=== PATIENT | male | born 1980 | race Caucasian/White ===

== ENCOUNTER 2016-12-14 19:45 | Emergency (ER) | payer OTHER ==
[~2016-12-14] VITALS: Ht 188 cm; Wt 111.6 kg
[~2016-12-14 19:45] MED LIST: AMLODIPINE10 MG PO; ATENOLOL25 MG PO; CELEXA20 MG PO; CITALOPRAM HYDR10 MG PO; COMPAZINE10 MG PO; FLEXERIL10 MG PO; HYDRODIURIL 2525 MG PO; LOSARTAN POTAS100 MG PO; MOTRIN800 MG PO; NAPROXEN500 MG PO; NORVASC5 M1 PO; PERCOCET 325 MG1 TAB PO; PREVACID 30MG30 MG PO; ROBITUSSIN W/CO10 ML PO; TORADOL10 MG PO; TRAMADOL50 MG PO; TRAZODONE100 MG PO; TRICOR 145 MG145 MG PO; VALACYCLOVIR1 GM PO; VALTREX1 GM PO
[2016-12-14 19:48] VITALS: BP 157/96
--- NOTE | 2016-12-14 19:56 | ED SKIN/ALLERGY COMPLAINT ---
History of Present Illness General Chief Complaint: Skin Rash/ Abcess Stated Complaint: " BOIL ON RT SIDE OF CHEST" Source: patient, old records Exam Limitations: no limitations Vital Signs & Intake/Output Vital Signs & Intake/Output Vital Signs Date Time Temp Pulse Resp B/P Pulse O2 O2 Flow FiO2 Ox Delivery Rate 12/14 2005 100 Room Air 12/14 1947 97.8 100 20 157/96 97 Room Air Allergies Coded Allergies: Penicillins (Mild, RASH 12/14/16) Reconcile Medications Amlodipine (Norvasc 5MG Tab) 5 MG TABLET 1 TAB PO DAILY HEART HEALTH ( Reported) Atenolol 25 MG TABLET 1 TAB PO DAILY BP (Reported) Cephalexin (Keflex) 500 MG CAPSULE 1 CAP PO TID CELLULITIS Fenofibrate (Tricor 145 MG) 145 MG TABLET 1 TAB PO DAILY HTN (Reported) Hydrochlorothiazide (Hydrodiuril 25 MG Tab) 25 MG TABLET 1 TAB PO DAILY HTN ( Reported) Sulfamethoxazole/Trimethoprim (Bactrim Ds Tablet) 800 MG-160 MG TABLET 1 TAB PO BID CELLULITIS Triage Note: TRIAGE: PT TO ER C/C ?BOIL TO R SIDE OF CHEST. HAS BEEN THERE FOR 8 MONTHS BUT IT "POPPED FRIDAY NIGHT". TAKING CIPRO S/P ?CYSTOSCOPY. Triage Nurses Notes Reviewed? yes Onset: Gradual Duration: day(s): (FEW) Timing: recent history Severity: mild Location: [place] No Modifying Factors: none Associated Symptoms: swelling/mass/lumps HPI: This is a 36 year old male who presents with right chest wall infection/abscess x a few days. He denies fever or chills. States that he had a lump there for years before. Past History Travel History Traveled to [place] past 21 day No Medical History Any Pertinent Medical History? see below for history Neurological: NONE EENT: NONE Cardiovascular: HYPERTENSION Respiratory: NONE Gastrointestinal: NONE Hepatic: NONE Renal: NONE Musculoskeletal: sciatica Psychiatric: depression, substance abuse (none since 2006), PTSD Endocrine: NONE Blood Disorders: NONE Cancer(s): NONE SPECIALIST ICU/Reproductive: NONE Surgical History Surgical History: PERIGANGLIOMA REMOVED Psychosocial History Who do you live with Patient/Self What is your primary language Greenlandic Tobacco Use: Current Daily Use Daily Tobacco Use Amount/Type: => 5 Cigarettes daily ETOH Use: denies use Illicit Drug Use: denies illicit drug use Family History Hx Contributory? No Review of Systems Review of Systems Constitutional: Denies: chills, fever. EENTM: Reports: no symptoms. Respiratory: Denies: cough, short of breath. Cardiovascular: Denies: chest pain. GI: Reports: no symptoms. Genitourinary: Reports: no symptoms. Musculoskeletal: Reports: no symptoms. Skin: Reports: see HPI, erythema, lumps. Neurological/Psychological: Reports: no symptoms. Hematologic/Endocrine: Denies: bruising, bleeding, polyuria, polydipsia. Immunologic/Allergic: Reports: no symptoms. All Other Systems: Reviewed and Negative Physical Exam Physical Exam General Appearance: well developed/nourished, alert, awake, mild distress Head: atraumatic Eyes: Bilateral: PERRL, EOMI. Ears, Nose, Throat: normal pharynx, normal ENT inspection, hearing grossly normal Neck: normal inspection, supple Respiratory: normal breath sounds Cardiovascular: regular rate/rhythm Gastrointestinal: soft, non-tender Extremities: normal range of motion Neurologic/Psych: awake, alert, oriented x 3, normal mood/affect Skin: intact, normal color, warm/dry Skin Problem Location: right lower chest Skin Problem Character: abcess Lymphatic: no anterior cervical priyank Progress Differential Diagnosis: abscess/cellulitis, INFECTED SEBACEOUS CYST Plan of Care: Orders Procedure Date/time Status TRUNK AREA CULTURE 12/14 2013 Active Current Medications Sig/Sal Start time Last Medication Dose Stop Time Status Admin Ibuprofen 800 MG ONCE ONE 12/14 2014 UNVr (Motrin) 12/14 2016 Microbiology 12/14 2013 TRUNK: Culture & Sensitivity - ORD 12/14 2013 TRUNK: Gram Stain - ORD Departure Departure Time of Disposition: 2013 Disposition: HOME OR SELF CARE Condition: Stable Clinical Impression Primary Impression: Abscess Referrals: MARKOS REINA MD (PCP/Family) Additional Instructions: Take the bactrim and keflex as directed. Motrin or tylenol as needed for pain. Follow up with your doctor in the office. Return as needed. Departure Forms: Customer Survey General Discharge Information Prescriptions: Current Visit Scripts Sulfamethoxazole/Trimethoprim (Bactrim Ds Tablet) 1 TAB PO BID #20 TAB Cephalexin (Keflex) 1 CAP PO TID #30 CAP Procedures Incision and Drainage Site: RIGHT UPPER CHEST Blade Size: 10 I & D Procedure: Yes: betadine prep, sterile drapes applied, sterile dressing applied. No: wick placed. Progress: 5 CC THICK PURULENT MATERIAL DRAINED PATIENT TOLERATED PROCEDURE WELL
[2016-12-14] MEDS ORDERED: BACTRIM DS TAB1 EACH PO (20:15)
[2016-12-14] MEDS ORDERED: KEFLEX500 M1 PO (20:15)
== END 2016-12-14 20:28 ==
LOC: ERH 19:45
DX: L02.213 Cutaneous abscess of chest wall (principal)
CPT/HCPCS: 87070; 87147

== ENCOUNTER 2017-03-29 11:04 | Emergency (ER) | payer OTHER ==
[~2017-03-29] VITALS: Ht 188 cm; Wt 113.4 kg
[~2017-03-29 11:04] MED LIST changes: +BACTRIM DS TAB1 EACH PO; +KEFLEX500 M1 PO
[2017-03-29] MEDS ORDERED: LOSARTAN POTASS50 M1 PO (11:50)
[2017-03-29] MEDS ORDERED: SINGULAIR10 M1 PO (11:50)
[2017-03-29] MEDS ORDERED: CRESTOR5 M1 PO (11:50)
[2017-03-29] MEDS ORDERED: PATADAY2.5 ML OPH (11:54)
--- NOTE | 2017-03-29 11:57 | ED DYSPNEA/ASTHMA COMPLAINT ---
History of Present Illness General Chief Complaint: General Adult Stated Complaint: CHEST TIGHTNESS WITH COUGHING, SENT FROM WALK-IN Source: patient, family Exam Limitations: no limitations Vital Signs & Intake/Output Vital Signs & Intake/Output Vital Signs Date Time Temp Pulse Resp B/P B/P Pulse O2 O2 Flow FiO2 Mean Ox Delivery Rate 03/29 1302 98.4 84 18 129/83 96 Room Air 03/29 1121 98.4 98 18 152/105 96 Room Air Allergies Coded Allergies: Penicillins (Mild, RASH 12/14/16) montelukast (From SINGULAIR) (Mild, ITCHING 03/29/17) Reconcile Medications Albuterol Sulfate (Proair Hfa) 90 MCG HFA.AER.AD 2 PUF INH Q4-6 PRN PRN BRONCHITIS Amlodipine Besylate (Norvasc) 5 MG TABLET 1 TAB PO DAILY HEART (Reported) Benzonatate (Tessalon Perle) 100 MG CAPSULE 1 CAP PO TID PRN COUGH Losartan Potassium 50 MG TABLET 1 TAB PO DAILY HEART (Reported) Olopatadine HCl (Pataday) 0.2 % DROPS 1 GTT OPH DAILY ALLERGIES (Reported) Prednisone 10 MG TABLET 1 TAB PO DAILY BRONCHITIS TAKE 4 TABS FOR 3 DAYS THEN TAKE 3 TABS FOR 3 DAYS THEN TAKE 2 TABS FOR 3 DAYS THEN TAKE 1 TAB FOR 3 DAYS Rosuvastatin Calcium (Crestor) 5 MG TABLET 1 TAB PO DAILY CHOLESTEROL ( Reported) Triage Note: TRIAGE: PATIENT TO ER FROM HOME REPORTS SEEN AT [facility] AND SENT TO ER D/T C/O CHEST TIGHTNESS W/ COUGH ONLY. PATIENT REPORTS ONSET COUGH THIS AM, WAS HAVING BAD ALLERGIES AND TAKING SINGULAIR "BUT STARTED MAKING ME ITCHY." DENIES FEVER/ RASH. AFEBRILE IN TRIAGE. PATIENT REPORTS "I THINK THE WOMAN AT THE CLINIC THOUGH IT WADS MY CHEST BUT REALLY IT'S JUST MY COUGH." Triage Nurses Notes Reviewed? yes HPI: Patient went to a walk-in center complaining of a nonproductive cough, dyspnea exertion and chest tightness. The symptoms are going on for 2 days. There is no orthopnea. There is no fevers or chills. Patient had EKG performed at a walk in center and was sent over for evaluation. Patient states that the chest tightness is constant for 2 days. There is no radiation. Patient states that he's had these symptoms multiple times in the past. Patient states he recently started Singulair but has started to break out in a rash whenever he takes it. Past History Travel History Traveled to [place] past 21 day No Medical History Any Pertinent Medical History? see below for history Neurological: NONE EENT: NONE Cardiovascular: HYPERTENSION Respiratory: NONE Gastrointestinal: NONE Hepatic: NONE Renal: NONE Musculoskeletal: sciatica Psychiatric: depression, substance abuse (none since 2006), PTSD Endocrine: NONE Blood Disorders: NONE Cancer(s): NONE [employer] STICKER/Reproductive: NONE Surgical History Surgical History: PERIGANGLIOMA REMOVED Psychosocial History Who do you live with Patient/Self What is your primary language Pakistani Tobacco Use: Current Daily Use Daily Tobacco Use Amount/Type: => 5 Cigarettes daily ETOH Use: occasional use Illicit Drug Use: PAST USE Family History Hx Contributory? No Review of Systems Review of Systems Constitutional: Reports: no symptoms. EENTM: Reports: no symptoms. Respiratory: Reports: see HPI, cough, wheezing. Cardiovascular: Reports: see HPI, chest pain. GI: Reports: no symptoms. Genitourinary: Reports: no symptoms. Musculoskeletal: Reports: no symptoms. Skin: Reports: no symptoms. Neurological/Psychological: Reports: no symptoms. Hematologic/Endocrine: Reports: no symptoms. Immunologic/Allergic: Reports: no symptoms. All Other Systems: Reviewed and Negative Physical Exam Physical Exam General Appearance: well developed/nourished, alert, awake Head: atraumatic, normal appearance Eyes: Bilateral: PERRL, pale conjunctivae. Ears, Nose, Throat: normal pharynx, normal ENT inspection Neck: normal inspection, supple, full range of motion Respiratory: normal breath sounds, chest non-tender, no respiratory distress, lungs clear Cardiovascular: regular rate/rhythm, normal peripheral pulses Gastrointestinal: normal bowel sounds, soft, non-tender, no organomegaly Extremities: normal inspection, normal capillary refill, normal range of motion, no edema Neurologic/Psych: no motor/sensory deficits, awake, alert, oriented x 3, normal gait, normal mood/affect Skin: intact, normal color, warm/dry Lymphatic: no anterior cervical priyank Core Measures ACS in differential dx? No Severe Sepsis Present: No Septic Shock Present: No Progress Differential Diagnosis: asthma, bronchitis, COPD, pulmonary embolism, pneumonia, pneumothorax Plan of Care: Orders Procedure Date/time Status EKG 03/29 1110 Active Diagnostic Imaging: Viewed by Me: Radiology Read. Discussed w/RAD: Radiology Read. CXR Impression: PATIENT: NAVNEET BUTT PRESENT AGE: 36 PATIENT ACCOUNT NO: [id number] : 82 LOCATION: [facility] ORDERING PHYSICIAN: JACK ARMENDARIZ MD SERVICE DATE: 03/29/176351 EXAM TYPE: RAD - XRY-CHEST XRAY, PA AND LATERAL EXAMINATION: XR CHEST CLINICAL INFORMATION: Cough. COMPARISON: 06/29/2016 TECHNIQUE: 2 views of the chest were obtained. FINDINGS: Lungs are well expanded. A linear opacity of focal scarring is present within the lingula, unchanged compared to the prior exam. There is no evidence of acute interstitial infiltrate or focal consolidation. Cardiac silhouette is normal in size. The mediastinal and hilar contours are normal. The bones are unremarkable. Surgical clips project over the upper abdomen and lower chest. IMPRESSION: No acute cardiopulmonary abnormality. DICTATED BY: SHAYLA VIZCAINO MD DATE/TIME DICTATED:03/29/171331 FERRULER:TITI DATE/TIME TRANSCRIBED:1331 CONFIDENTIAL, DO NOT COPY WITHOUT APPROPRIATE AUTHORIZATION. < Electronically signed in Other Vendor System> SIGNED BY: SHAYLA VIZCAINO MD 03/29/171336 Initial ED EKG: NSR, no ST T wave changes Departure Departure Disposition: HOME OR SELF CARE Condition: Stable Clinical Impression Primary Impression: Bronchitis Referrals: LATOSHA LARSEN,MARKOS (PCP/Family) Additional Instructions: STOP THE SINGULAIR TAKE PREDNISONE PRESCRIBED USE INHALER NEEDED TAKE TESSALON NEEDED FOR THE COUGH RETURN FOR ANY CONCERNS Departure Forms: Customer Survey General Discharge Information Prescriptions: Current Visit Scripts Prednisone 1 TAB PO DAILY #30 TAB TAKE 4 TABS FOR 3 DAYS THEN TAKE 3 TABS FOR 3 DAYS THEN TAKE 2 TABS FOR 3 DAYS THEN TAKE 1 TAB FOR 3 DAYS Albuterol Sulfate (Proair Hfa) 2 PUF INH Q4-6 PRN PRN BRONCHITIS #1 INHAL Benzonatate (Tessalon Perle) 1 CAP PO TID PRN COUGH #30 CAP Critical Care Note Critical Care Note Critical Care Time: non-applicable
[2017-03-29 13:02] VITALS: BP 129/83
--- NOTE | 2017-03-29 13:37 | RADIOLOGY REPORT ---
EXAMINATION: XR CHEST CLINICAL INFORMATION: Cough. COMPARISON: 06/29/2016 TECHNIQUE: 2 views of the chest were obtained. FINDINGS: Lungs are well expanded. A linear opacity of focal scarring is present within the lingula, unchanged compared to the prior exam. There is no evidence of acute interstitial infiltrate or focal consolidation. Cardiac silhouette is normal in size. The mediastinal and hilar contours are normal. The bones are unremarkable. Surgical clips project over the upper abdomen and lower chest. IMPRESSION: No acute cardiopulmonary abnormality.
[2017-03-29] MEDS ORDERED: PREDNISONE10 M2 PO (13:47)
[2017-03-29] MEDS ORDERED: PROAIR HFA8.5 GM INH (13:47)
[2017-03-29] MEDS ORDERED: TESSALON PERLE100 M1 PO (13:47)
== END 2017-03-29 13:56 ==
LOC: ERH 11:04
DX: J40 Bronchitis, not specified as acute or chronic (principal); Z72.0 Tobacco use
CPT/HCPCS: 93005; 93010

== ENCOUNTER 2017-04-12 19:52 | Emergency (ER) | payer OTHER ==
[~2017-04-12] VITALS: Ht 188 cm; Wt 113.4 kg
[~2017-04-12 19:52] MED LIST changes: +CRESTOR5 M1 PO; +LOSARTAN POTASS50 M1 PO; +PATADAY2.5 ML OPH; +PREDNISONE10 M2 PO; +PROAIR HFA8.5 GM INH; +SINGULAIR10 M1 PO; +TESSALON PERLE100 M1 PO
[2017-04-12 20:06] VITALS: BP 131/89
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
--- NOTE | 2017-04-15 11:04 | RADIOLOGY REPORT ---
EXAMINATION: XR CERVICAL SPINE CLINICAL INFORMATION: Trauma COMPARISON: None TECHNIQUE: 3 views of the cervical spine FINDINGS: Mild degenerative disc disease at C4-C5 with small endplate osteophytes. No fracture or prevertebral soft tissue swelling. IMPRESSION: Mild C4-C5 degenerative disc disease. No acute abnormality.
--- NOTE | 2017-04-15 11:06 | RADIOLOGY REPORT ---
EXAMINATION: XR CHEST CLINICAL INFORMATION: Trauma COMPARISON: 03/29/2017 TECHNIQUE: 2 views of the chest were obtained. FINDINGS: No significant abnormality is noted involving the heart, lungs, mediastinum, bony thorax or soft tissues. IMPRESSION: Unremarkable examination.
== END 2017-04-12 22:00 ==
LOC: ERH 19:52
DX: S16.1XXA Strain of muscle, fascia and tendon at neck level, initial encounter (principal); S29.012A Strain of muscle and tendon of back wall of thorax, initial encounter; V49.40XA Driver injured in collision with unspecified motor vehicles in traffic accident, initial encounter; Y92.411 Interstate highway as the place of occurrence of the external cause
CPT/HCPCS: 72050; 93005; 93010